=== PATIENT | female | born 1985 | race Caucasian/White ===

== ENCOUNTER 2016-12-31 16:52 | Emergency (ER) | payer MEDICAID ==
[~2016-12-31] VITALS: Ht 165.1 cm; Wt 76.2 kg
[~2016-12-31 16:52] MED LIST: BACTRIM DS 8001 TA1 PO; BUSPAR 10MG TAB10 MG PO; K-DUR 20MEQ TA20 MEQ PO; PROZAC 20MG CAP20 MG PO; TOPAMAX100 MG PO
--- OUTSIDE RECORDS SUMMARY | 2016-12-31 17:16 | External Medical Summary Rpt ---
Author Author [facility] Organization [facility] Address Unknown Phone Unavailable Care Team Providers Care Ict Help Desk Technician Name Role Phone MD DEEPALI PCP Unavailable Encounter [facility] [id number] Date(s): 11/26/14 - 11/28/15 [facility] [place] [address]- [phone] Discharge Disposition: OP Self Care or Home Attending Physician: ADOLFO PEDERSON MD Admitting Physician: ADOLFO PEDERSON MD Referring Physician: ADOLFO PEDERSON MD Reason for Visit SYNCOPE AND COLLAPSE Vital Signs No data available for this section Problem List No data available for this section Allergies, Adverse Reactions, Alerts No data available for this section Medications No data available for this section Results No data available for this section Immunizations No data available for this section Procedures No data available for this section Social History No data available for this section Assessment and Plan No data available for this section Hospital Discharge Instructions No data available for this section
--- OUTSIDE RECORDS SUMMARY | 2016-12-31 17:16 | External Medical Summary Rpt ---
Author Author [facility] Organization [facility] Address Unknown Phone Unavailable Care Team Providers Care Slot Editor Name Role Phone MD DEEPALI PCP Unavailable Encounter [facility] [id number] Date(s): 11/26/14 - 11/28/15 [facility] [place] [address]- Discharge Disposition: OP Self Care or Home [...]
--- OUTSIDE RECORDS SUMMARY | 2016-12-31 17:18 | External Medical Summary Rpt | CCD ---
Author Author , JOE Organization JOE Address Unknown Phone [email or web address] Care Team Providers Care Cardroom Attendant Name Role Phone [facility] Unavailable Unavailable DEPARTMENT, [facility]PART[facility] Unavailable Unavailable HOSPITAL, [facility], Unavailable Unavailable [facility], Unavailable Unavailable [facility] Unavailable Unavailable [facility], [facility], Unavailable Unavailable [facility] Unavailable [facility]available HOSPITA, [facility] Unavailable Unavailable HOSPITAL, [facility] Unavailable Unavailable HOSPITA, [facility]available Unavailable GROUP PS, [facility] Unavailable Unavailable [facility], [facility] Un[facility], [facility] Un[facility] Un[facility], [facility] Unavailable Unavailable ASSOCIATES, [facility] SUNIL MELGAR, Unavailable Unavailable PAWAN FAN OWEN, Unavailable Unavailable [facility]WAN Hernandes [facility] Un[facility] FRIDA FUNG MD Unavailable Unavailable CONSULTING SERVFRIDA MD CONSULTING SERV FRIDA FUNG MD Unavailable Unavailable CONSULTING SRFRIDA Villareal MD CONSULTING SRV [facility], Unavailable Unavailable PLLC, [facility] Unavailable Unavailable LAB, [facility]OLOGY & CYT[facility]Y LAB [facility], Unavailable Unavailable [facility] Unavailable Unavailable EMERGENCY PHYS, [facility] Unavailable Unavailable [facility]GENCY PHYSI, [facility], Unavailable Unavailable [facility] # Unavailable Unavailable [id number], 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) Z98.51 TUBAL 10-23-2016 LIGATION STATUS N390 URINARY 10-18-2016 [facility] TRACT N EMERGENCY INFECTION PHYS SITE NOT SPECIFIED R509 FEVER 10-18-2016 [facility] UNSPECIFIED N EMERGENCY PHYS F80104 PERSONAL 10-18-2016 [facility] HISTORY OF COMMUNTIY NICOTINE HOSPITA DEPENDENCE Z885 ALLERGY 10-18-2016 [facility] STATUS TO COMMUNTIY NARCOTIC HOSPITA AGENT STATUS Z9079 ACQUIRED 10-18-2016 [facility] ABSENCE OF COMMUNTIY OTHER HOSPITA GENITAL ORGANS Z9851 TUBAL 10-18-2016 [facility] LIGATION COMMUNTIY STATUS HOSPITA N8311 CORPUS 10-10-2016 [facility] OF RIGHT OVARY R83612 UNSPECIFIED 10-10-2016 [facility] LEFT GROUP PS SIDE O0010 TUBAL 10-10-2016 [facility] WITHOUT INTRAUTERIN E O0090 UNSPEC 10-10-2016 [facility] W/O INTRAUTERIN E PREG Z886 ALLERGY 10-10-2016 [facility] STATUS TO COMMUNTIY ANALGESIC HOSPITA AGENT STATUS O21.9 VOMITING OF 10-08-2016 , UNSPECIFIED O23.41 UNSPECIFIED 10-08-2016 INFECTION OF URINARY TRACT IN , FIRST TRIMESTER O26.891 OTHER 10-08-2016 SPECIFIED RELATED CONDITIONS, FIRST TRIMESTER R10.30 LOWER 10-08-2016 ABDOMINAL PAIN, UNSPECIFIED R11.2 NAUSEA WITH 10-08-2016 VOMITING, UNSPECIFIED Z32.01 ENCOUNTER 10-08-2016 FOR TEST, RESULT POSITIVE Z3A.00 WEEKS OF 10-08-2016 [facility]ST[facility] OF NOT SPECIFIED O219 VOMITING OF 10-04-2016 [facility] COMMUNTIY UNSPECIFIED HOSPITA O2341 UNS INF 10-04-2016 [facility] URINARY N EMERGENCY TRACT PHYS FIRST TRIMESTER J29745 OTHER SPEC 10-04-2016 [facility] COMMUNTIY RELATED HOSPITA COND 1ST TRIMESTER O9989 OTH DZ & 10-04-2016 [facility] [place] COND COMP [facility] PREG CHILDBIRTH PUERPERIUM Z3201 ENCOUNTER 10-04-2016 [facility] FOR COMMUNTIY HOSPITA TEST RESULT POSITIVE Z3A00 WEEKS OF 10-04-2016 [facility] GESTATION N EMERGENCY OF PHYS NOT SPECIFIED H16668 SWIMMERS 05-10-2016 [facility] EAR LEFT CLINIC EAR H6692 OTITIS 05-10-2016 [facility] UNSPECIFIED LEFT EAR R05 COUGH 05-10-2016 [facility] [place] [facility] R062 WHEEZING 05-10-2016 [facility] R0689 OTHER 05-10-2016 [facility] [place] ABNORMALITI RADIOLOGY ES OF BREATHING R0989 OT SPEC SX 05-10-2016 [facility] & SIGNS CLINIC INVLV THE CIRC & RESP SYS C59638 PAIN IN 04-19-2016 [facility] [place] LEFT WRIST RADIOLOGY M38806W STRAIN OT 04-19-2016 [facility] SPEC M&T N EMERGENCY WRIST HAND PHYS LEVL LT HAND INIT J86NSXV UNSPECIFIED 04-19-2016 [facility] FALL N EMERGENCY INITIAL PHYS ENCOUNTER Z0100 ENCOUNTER 08-04-2015 [facility] EXAM EYES & GRE VISION W/O ABNORMAL FIND E876 HYPOKALEMIA 02-08-2015 FRIDA FUNG MD CONSULTING SERV I959 HYPOTENSION 02-08-2015 FRIDA FUNG MD UNSPECIFIED CONSULTING SERV I10 ESSENTIAL 01-05-2015 [facility] G4710 HYPERSOMNIA 01-04-2015 FRIDA FUNG MD UNSPECIFIED CONSULTING SRV G478 OTHER SLEEP 12-24-2014 [facility] R0683 SNORING 12-24-2014 [facility] R5383 OTHER 12-24-2014 [place] [place] R569 UNSPECIFIED 12-24-2014 [facility] CONVUL[facility]IONS HOSPITAL [id number] CONTUSION 11-28-2014 [facility] OF LEFT N EMERGENCY WRIST PHYS INITIAL ENCOUNTER U200SWH FALL ON 11-28-2014 [facility] FROM OT N EMERGENCY STAIRS PHYS STEPS INITIAL ENCOUNTER 7851 PALPITATION 11-23-2014 [facility] Galvan MD CONSULTING SRV 7802 SYNCOPE AND 11-12-2014 FRIDA FUNG COLLAPSE [place]ULTING SRV 88020 SHORTNESS 11-12-2014 FRIDA FUNG OF BREATH MD CONSULTING SRV 40923 PRECORDIAL 11-12-2014 FRIDA FUNG PAIN CONSULTING SRV 20844 OTHER 11-02-2014 [facility] 94026 MEMORY LOSS 11-02-2014 [facility] 97070 UNSPEC 09-22-2014 [facility], WITHOUT PLLC MENTION INTRACT EPILEPSY 5990 URINARY 09-22-2014 [facility] TRACT [facility], INFECTION PLLC SITE NOT SPECIFIED 7820 DISTURBANCE 09-22-2014 [place] [facility] 72310 NONSPECIFIC 03-10-2014 [facility] ELECTROENCE PHALOGRAM 05176 ASTHMA, 02-21-2014 [facility] UNSPECIFIED N EMERGENCY , PHYS UNSPECIFIED STATUS 61321 WHEEZING 02-21-2014 [facility] N EMERGENCY PHYS 7862 COUGH 02-21-2014 [facility] N EMERGENCY PHYS 6259 UNSPEC 11-14-2013 [facility] SYMPTOM N EMERGENCY ASSOC PHYSI W/FEMALE GENITAL ORGANS 6268 OTH D/O 11-14-2013 [facility] MENSTRUATIO N EMERGENCY N&OTH ABN PHYSI BLEED FE GNT TRACT 51345 NAUSEA WITH 11-14-2013 [facility] [place] VOM[facility]ING RADIOLOG[facility] 81953 ABDOMINAL 11-14-2013 [facility] [place] PAIN RIGHT RADIOLOGY LOWER QUADRANT 99680 ALTERED 10-02-2013 [facility] V252 STERILIZATI 11-05-2011 [facility] SERV F[facility]AT[facility] V242 ROUTINE 11-01-2011 [facility] FOLLOW-UP FOUNDAT[facility] V7283 OTHER 11-01-2011 [facility] PRE-OPERATI HOSPITA VE EXAMINATION 06810 FIRST-DEGRE 09-04-2011 [facility] E PERINEAL [facility] LACERATION HOSPITA WITH DELIVERY V270 OUTCOME OF 09-04-2011 [facility] DELIVERY [facility] S[facility]LE HOSPITA LIVEBORN V221 SUPERVISION 09-03-2011 [facility] OF OTHER SERV NORMAL FOUNDATIO V2349 SUPERVISION 09-03-2011 [facility] W/OTH POOR F[facility] OBSTETRIC HX V2389 SUPERVISION 08-21-2011 [facility] OF OTHER SERV HIGH-RISK FOUNDATIO 66370 THREATENED 08-07-2011 [facility] PREMATURE [facility] LABOR HOSPITA ANTEPARTUM V2341 SUPERVISION 07-04-2011 [facility] W/HISTORY FOUNDATIO PRE-TERM LABOR V2881 ENCOUNTER 04-25-2011 [facility] ANATOMIC [facility] SURVEY V222 03-07-2011 [facility] [place] INCIDENTAL V720 EXAMINATION 02-22-2011 [facility] OF EYES GRE AND VISION 3670 HYPERMETROP 03-25-2010 [facility] [place] GRE 2701 PHENYLKETON 02-21-2010 [facility] 93893 OTHER 02-11-2010 [facility] THREATENED [facility], HOSP ANTEPARTUM V8901 SPCT PROB 02-08-2010 [facility] W/AMNIOTIC [facility] CAVITY & HOSP MEMBRANE NOT FOUND 88907 DECR 01-24-2010 [place] [facility] MGMT [facility] ANTPRTM COND/COMP 16125 OTH CURRENT 01-22-2010 [facility] CONDS [facility] CLASSIFIABL HOSP E ELSW ANTPRTM 44380 ABDOMINAL 01-22-2010 [facility], [facility] UNSPECIFIED HOSP SITE 07129 ABDOMINAL 12-07-2009 [facility] OTHER [facility] SPECIFIED HOSP SITE V220 SUPERVISION 11-29-2009 [place] OF NORMAL [facility]ER FIRST ASSOC[facility]ATES E8499 UNSPECIFIED 11-15-[address] [facility] OCCURRENCE HOSP E8859 FALL FROM 11-15-2009 [place] OTHER [facility] SLIPPING ASSOCIATES TRIPPING OR STUMBLING 73785 INFECTIONS 11-09-2009 [place] OF [facility] GENITOURINA ASSOCIATES RY TRACT ANTEPARTUM 61327 SPOTTING 10-04-2009 [place] COMP [facility] ANTEPARTUM COND/COMP 12975 MILD 09-21-2009 [place] HYPEREMESIS [facility] ANTEPARTUM 83145 OTHER 09-21-2009 [place] SPECIFED [facility] COMPLICATI HOSPITAL N ANTEPARTUM 7919 OTHER 09-21-2009 [facility] EXAMINATION OF URINE 11471 CERVICAL 09-06-2009 [place] SHORTENING [facility] ANTEPARTUM ASSOCIATES CONDITION OR COMP V283 ENCOUNTER 09-06-2009 [facility] ROUTINE [facility] SCREEN ASSOCIATES MALFORMATIO N ULTRASONIC V745 SCREENING 06-22-2009 PATHOLOGY & EXAMINATION CYTOLOGY FOR LAB VENEREAL DISEASE 22730 ABDOMINAL 06-16-2009 [facility] PAIN, LEFT [facility] UPPER HOSPITAL QUADRANT 2662 OTHER 06-10-2009 [facility] B-COMPLEX HEALTH DEFICIENCIE DEPARTMENT S V7242 06-10-2009 [facility] EXAMINATION HEALTH OR TEST DEPARTMENT POSITIVE RESULT Medications Na ND Rx Da Fi Fi Am Da Di Ph RX Ph St me C No te ll ll ou ys ag ar # ys at rm s nt no ma ic us Or Da si cy ia de te s n re d ON 57 08 09 12 4 00 KR Ac DA 23 -2 -2 .0 00 OG ti NS 70 4- 2- 00 06 ER ve ET 07 20 20 04 RO 63 17 17 85 PH N 0 27 AR HC MA L CY 8 MG L- 70 TA 9 BL ET HY 00 08 09 [address] 40 -2 -2 .0 00 OG ti OC 60 4- 2- 00 02 ER ve OD 12 20 20 31 ON 30 17 17 25 PH -A 1 11 AR CE MA TA CY ND NO L- PH 70 EN 9 5- 32 5 UPTON 65 08 09 28 14 00 KR Ac LF 86 -2 -2 .0 00 OG ti AM 20 4- 2- 00 06 ER ve ET 42 20 20 04 HO 00 17 17 85 PH XA 5 28 AR ZO MA LE CY -T MP L- 70 DS 9 TA BL ET HY 00 08 09 30 [address] 40 -1 -0 .0 00 OG ti OC 60 6- 8- 00 02 ER ve OD 12 20 20 31 ON 30 17 17 22 PH -A 1 77 AR CE MA TA CY ND NO L- PH 70 EN 9 5- 32 5 IB 55 08 09 40 10 00 KR Ac UP 11 -1 -0 .0 00 OG ti RO 10 6- 8- 00 06 ER ve FE 68 20 20 04 N 30 17 17 63 PH 60 5 97 AR 0 MA MG CY TA L- BL 70 ET 9 LA 51 04 05 46 30 00 CA Ac MO 67 -2 -1 .0 00 RL ti TR 24 6- 9- 00 00 IS ve IG 13 20 20 77 LE IN 00 17 [address] 25 UG S MG TA BL ET AR 65 04 05 30 30 00 CA Ac IP 16 -2 -1 .0 00 RL ti IP 20 6- 9- 00 00 IS ve RA 89 20 20 77 LE ZO 70 17 17 [address] 5 UG S MG TA BL ET NE 24 03 04 10 10 00 SO Ac OM 20 -1 -1 .0 00 PE ti YC 80 6- 4- 00 00 RS ve IN 63 20 20 55 -P 11 17 17 90 FA OL 0 02 ND YM LY YX IN DR -H UG C EA R SO LN AM 66 03 04 20 10 00 SO Ac OX 68 -1 -1 .0 00 PE ti -C 51 7- 4- 00 00 RS ve LA 00 20 20 55 V 10 17 17 90 FA 87 0 46 ND 5- LY [address] MG UG TA BL ET RA 53 02 02 2 45 22 WA 70 PA Ac NI 74 -0 -0 .0 L- 64 RR ti TI 60 1- 1- 00 MA 71 OT ve DI 25 20 20 RT 6 T NE 36 11 11 II 0 PH 15 AR OL 0 MA SO MG CY N # TA BL 10 ET 04 93 SP 00 02 02 11 28 28 WA 70 PA Ac RI 55 -0 -0 .0 L- 64 RR ti NT 59 1- 1- 00 MA 71 OT ve EC 01 20 20 RT 7 T 65 11 11 II 28 8 PH AR OL DA MA SO Y CY N TA # BL ET 10 04 93 OX 00 12 12 0 25 4 WA 22 PA Ac YC 40 -2 -2 .0 L- 18 RR ti OD 60 1- 1- 00 MA 63 OT ve ON 51 20 20 RT 6 T E- 20 10 10 II AC 1 PH ET AR OL AM MA SO IN CY N OP # HE N 10 5- 04 32 93 5 IB 68 12 12 0 25 6 WA 70 PA Ac UP 64 -2 -2 .0 L- 59 RR ti RO 50 1- 1- 00 MA 75 OT ve FE 22 20 20 RT 5 T N 15 10 10 II 60 9 PH 0 AR OL MG MA SO CY N TA # BL ET 10 04 93 TR 13 08 12 4 30 27 WA 70 PA Ac IN 81 -1 -0 .0 L- 43 RR ti AT 10 0- 5- 00 MA 09 OT ve AL 00 20 20 RT 9 T 71 10 10 II RX 0 PH 1 AR OL MA SO TA CY N BL # ET 10 04 93 TR 13 08 10 4 30 30 WA 70 PA Ac IN 81 -1 -1 .0 L- 43 RR ti AT 10 0- 8- 00 MA 09 OT ve AL 00 20 20 RT 9 T 71 10 10 II RX 0 PH 1 AR OL MA SO TA CY N BL # ET 10 04 93 CE 68 09 09 0 30 7 WA 70 Ac PH 18 -3 -3 .0 L- 49 LL ti AL 00 0- 0- 00 MA 34 AF ve EX 12 20 20 RT 2 LO IN 20 10 10 R 1 PH OS 50 AR IA 0 MA S MG CY M # CA PS 10 UL 04 E 93 TR 13 08 09 4 30 30 WA 70 PA Ac IN 81 -1 -0 .0 L- 43 RR ti AT 10 0- 6- 00 MA 09 OT ve AL 00 20 20 RT 9 T 71 10 10 II RX 0 PH 1 AR OL MA SO TA CY N BL # ET 10 04 93 TR 13 08 08 4 30 30 WA 70 PA Ac IN 81 -1 -1 .0 L- 43 RR ti AT 10 0- 0- 00 MA 09 OT ve AL 00 20 20 RT 9 T 71 10 10 II RX 0 PH 1 AR OL MA SO TA CY N BL # ET 10 04 93 NI 00 07 07 0 20 10 WA 70 KI Ac TR 37 -2 -2 .0 L- 41 NZ ti OF 83 8- 8- 00 MA 71 EL ve UR 42 20 20 RT 9 AN 20 10 10 CA TO 1 PH RL IN AR J MA MO CY NO # -M CR 10 04 10 93 0 MG ON 00 07 07 0 12 30 WA 70 KI Ac DA 78 -2 -2 .0 L- 41 NZ ti NS 15 8 8 00 MA 72 EL ve ET 23 20 20 RT 0 RO 86 10 10 CA N 4 PH RL OD AR J T MA 4 CY MG # TA 10 BL 04 ET 93 AZ 00 07 07 0 6. 3 WA 70 PA Ac IT 09 -0 -0 00 L- 39 RR ti HR 37 7- 7- 0 MA 44 OT ve OM 14 20 20 RT 5 T YC 65 10 10 II IN 6 PH AR OL 25 MA SO 0 CY N MG # TA 10 BL 04 ET 93 Procedures Procedure DOS Code Location Performer Comment MEDICAL 734 [facility] INDUCTION 2 N N OF LABOR [facility] [place] [address] [facility] OTHER 2 N N CURRENT [facility]ST[facility]IC HOSPITA HOSPITA LACERATIO N OTHER 7309 [facility] ARTIFICIA 2 N N L RUPTURE [facility] Encounters Encounter Start End Date Code Location Performer Type Date [facility] [place] [address] 7 N OUTPATIEN [facility] [place] [address] 7 N [facility] [place] [facility] - 5 5 [facility] - 5 5 [facility] - 5 5 [facility] 5 5 [facility] - 4 4 [facility] - [address] [facility] - 2 2 N INPATIENT [facility] - 0 0 [facility] 0 [facility] - 0 0 [facility] - 0 0 [facility] 0 [facility] 0 0 [facility] - [address] [facility] - 0 0 N [facility]
--- OUTSIDE RECORDS SUMMARY | 2016-12-31 17:18 | External Medical Summary Rpt | CCD ---
Author Author , JOE Organization JOE Address Unknown Phone [email or web address] Care Team Providers Care Purchasing Administrative Assistant Name Role Phone [facility] Unavailable Unavailable DEPARTMENT, [facility] Unavailable Unavailable HOSPITAL, [facility], Unavailable Unavailable [facility], Unavailable Unavailable [facility] Unavailable Unavailable [facility]OC, [facility], [facility]available Unavailable [facility] Unavailable Unavailable HOSPITA, [facility] Unavailable Unavailable HOSPITAL, [facility] Unavailable Unavailable HOSPITA, [facility] Unavailable Unavailable GROUP PS, [facility] Unavailable Unavailable IM[facility]ING [facility], [facility] Un[facility] Un[facility], [facility] Un[facility] Un[facility], [facility] [place] [employer] Unavailable Unavailable ASSOCIATES, [place] [facility] SUNIL MELGAR, Unavailable Unavailable PAWAN [...] LAB [facility], Unavailable Unavailable [facility] Unavailable Unavailable EMERGENCY PHYS, [facility] Unavailable Unavailable EMERGENCY PHYSI, [facility], Unavailable Unavailable [facility] # [facility]available Unavailable [id number], [facility] # [id number] Purpose Continuity of Care Document - 06-10-2009 [...] FEVER 10-18-2016 [facility] UNSPECIFIED N EMERGENCY PHYS [id number] PERSONAL 10-18-2016 [facility] HISTORY OF COMMUNTIY NICOTINE HOSPITA DEPENDENCE Z885 ALLERGY 10-18-2016 [facility] STATUS TO COMMUNTIY NARCOTIC HOSPITA AGENT STATUS Z9079 ACQUIRED 10-18-2016 [facility] ABSENCE OF COMMUNTIY OTHER HOSPITA GENITAL ORGANS Z9851 TUBAL 10-18-2016 [facility] LIGATION COMMUNTIY STATUS HOSPITA N8311 CORPUS 10-10-2016 [facility] OF RIGHT OVARY B71101 UNSPECIFIED 10-10-2016 [facility] CYST LEFT GROUP PS SIDE O0010 TUBAL 10-10-2016 [facility] WITHOUT INTRAUTERIN E O0090 UNSPEC 10-10-2016 [facility] W/O INTRAUTERIN E PREG Z886 ALLERGY 10-10-2016 [facility] STATUS TO COMMUNTIY ANALGESIC HOSPITA AGENT STATUS O21.9 VOMITING OF 10-08-2016 , UNSPECIFIED O23.41 UNSPECIFIED 10-08-2016 INFECTION OF URINARY TRACT IN , FIRST TRIMESTER O26.891 OTHER 10-08-2016 SPECIFIED RELATED CONDITIONS, FIRST TRIMESTER R10.30 LOWER 10-08-2016 ABDOMINAL PAIN, UNSPECIFIED R11.2 NAUSEA WITH 10-08-2016 VOMITING, UNSPECIFIED Z32.01 ENCOUNTER 10-08-2016 FOR TEST, RESULT POSITIVE Z3A.00 WEEKS OF 10-08-2016 GEST[facility] OF NOT SPECIFIED O219 VOMITING OF 10-04-2016 [facility] COMMUNTIY UNSPECIFIED HOSPITA O2341 UNS INF 10-04-2016 [facility] URINARY N EMERGENCY TRACT PHYS FIRST TRIMESTER D48424 OTHER SPEC 10-04-2016 [facility] COMMUNTIY RELATED HOSPITA COND 1ST TRIMESTER O9989 OTH DZ & 10-04-2016 [facility] [place] [facility] COMP RADIOLOGY PREG CHILDBIRTH PUERPERIUM Z3201 ENCOUNTER 10-04-2016 [facility] FOR COMMUNTIY HOSPITA TEST RESULT POSITIVE Z3A00 WEEKS OF 10-04-2016 [facility] GESTATION N EMERGENCY OF PHYS NOT SPECIFIED M10853 SWIMMERS 05-10-2016 [facility] EAR LEFT CLINIC EAR H6692 OTITIS 05-10-2016 [facility] UNSPECIFIED LEFT EAR R05 COUGH 05-10-2016 [facility] [place] [facility] R062 WHEEZING 05-10-2016 [facility] R0689 OTHER 05-10-2016 [facility] [place] ABNORMALITI RADIOLOGY ES OF BREATHING R0989 OT SPEC SX 05-10-2016 [facility] & SIGNS CLINIC INVLV THE CIRC & RESP SYS U09610 PAIN IN 04-19-2016 [facility] [place] LEFT WRIST RADIOLOGY U58317H STRAIN OT 04-19-2016 [facility] SPEC M&T N EMERGENCY WRIST HAND PHYS LEVL LT HAND INIT A61HBGD UNSPECIFIED 04-19-2016 [facility] FALL N EMERGENCY INITIAL PHYS ENCOUNTER Z0100 ENCOUNTER 08-04-2015 [facility] EXAM EYES & GRE VISION W/O ABNORMAL FIND E876 HYPOKALEMIA 02-08-2015 FRIDA FUNG MD CONSULTING SERV I959 HYPOTENSION 02-08-2015 FRIDA FUNG MD UNSPECIFIED CONSULTING SERV I10 ESSENTIAL 01-05-2015 [facility] N G4710 HYPERSOMNIA 01-04-2015 FRIDA FUNG MD UNSPECIFIED CONSULTING SRV G478 OTHER SLEEP 12-24-2014 [facility] R0683 SNORING 12-24-2014 [facility] R5383 OTHER 12-24-2014 [facility] FATIGUE [facility] R569 UNSPECIFIED 12-24-2014 [facility] CONVULSIONS HOSPITAL [id number] CONTUSION 11-28-2014 [facility] OF LEFT N EMERGENCY WRIST PHYS INITIAL ENCOUNTER D383YYL FALL ON 11-28-2014 [facility] FROM OT N EMERGENCY STAIRS PHYS STEPS INITIAL ENCOUNTER 7851 PALPITATION 11-23-2014 FRIDA Galvan MD CONSULTING SRV 7802 SYNCOPE AND 11-12-2014 FRIDA UFNG COLLAPSE MD CONSULTING SRV 09163 SHORTNESS 11-12-2014 FRIDA FUNG OF BREATH MD CONSULTING SRV 18750 PRECORDIAL 11-12-2014 FRIDA FUNG PAIN CONSULTING SRV 91911 OTHER 11-02-2014 [facility] 18197 MEMORY LOSS 11-02-2014 [facility] 14657 UNSPEC 09-22-2014 [facility] EPILEPSY PHYSICIANS, WITHOUT PLLC MENTION INTRACT EPILEPSY 5990 URINARY 09-22-2014 [facility] TRACT PHYSICIANS, INFECTION PLLC SITE NOT SPECIFIED 7820 DISTURBANCE 09-22-2014 [facility] MEDICAL SENSATION IMAGING ASS 08933 NONSPECIFIC 03-10-2014 [facility] ELECTROENCE PHALOGRAM 08945 ASTHMA, 02-21-2014 [facility] UNSPECIFIED N EMERGENCY , PHYS UNSPECIFIED STATUS 23945 WHEEZING 02-21-2014 [facility] N EMERGENCY PHYS 7862 COUGH 02-21-2014 [facility] N EMERGENCY PHYS 6259 UNSPEC 11-14-2013 [facility] SYMPTOM N EMERGENCY ASSOC PHYSI W/FEMALE GENITAL ORGANS 6268 OTH D/O 11-14-2013 [facility] MENSTRUATIO N EMERGENCY N&OTH ABN PHYSI BLEED FE GNT TRACT 41239 NAUSEA WITH 11-14-2013 [facility] [place] [facility] RADIOLOG[facility] 22362 ABDOMINAL 11-14-2013 [facility] [place] PAIN RIGHT RADIOLOGY LOWER QUADRANT 41390 ALTERED 10-02-2013 [facility] V252 STERILIZATI 11-05-2011 [facility] V242 ROUTINE 11-01-2011 [facility] FOLLOW-UP [facility] V7283 OTHER 11-01-2011 [facility] PRE-OPERATI HOSPITA VE EXAMINATION 51707 FIRST-DEGRE 09-04-2011 [facility] E PERINEAL [facility] LACERATION HOSPITA WITH DELIVERY V270 OUTCOME OF 09-04-2011 [facility] DELIVERY COMMUNITY SINGLE HOSPITA LIVEBORN V221 SUPERVISION 09-03-2011 [facility] OF OTHER SERV NORMAL FOUNDATIO V2349 SUPERVISION 09-03-2011 [facility] W/OTH POOR FOUNDATIO OBSTETRIC HX V2389 SUPERVISION 08-21-2011 [facility] OF OTHER SERV HIGH-RISK FOUNDATIO 55965 THREATENED 08-07-2011 [facility] PREMATURE [facility] LABOR HOSPITA ANTEPARTUM V2341 SUPERVISION 07-04-2011 [facility] W/HISTORY FOUNDATIO PRE-TERM LABOR V2881 ENCOUNTER 04-25-2011 [facility] ANATOMIC F[facility]ATIO SURVEY V222 03-07-2011 [facility] INCIDENTAL V720 EXAMINATION 02-22-2011 [facility] OF EYES GRE AND VISION 3670 HYPERMETROP 03-25-2010 [facility] IA GRE 2701 PHENYLKETON 02-21-2010 [facility] 70367 OTHER 02-11-2010 [facility] THREATENED [facility], HOSP ANTEPARTUM V8901 SPCT PROB 02-08-2010 [facility] W/AMNIOTIC [facility]P MEMBRANE NOT FOUND 41240 DECR 01-24-2010 [place] MOVMNTS BOARD MIXER TENDER MGMT MOTH ASSOCIATES ANTPRTM COND/COMP 72211 OTH CURRENT 01-22-2010 [facility] MAT CONDS [facility] CLASSIFIABL HOSP E ELSW ANTPRTM 81455 ABDOMINAL 01-22-2010 [facility] PAIN, [facility] UNSPECIFIED HOSP SITE 58945 ABDOMINAL 12-07-2009 [facility] PAIN OTHER [facility] SPECIFIED HOSP SITE V220 SUPERVISION 11-29-2009 [place] OF NORMAL BOARD MIXER TENDER FIRST ASSOCIATES E8499 UNSPECIFIED 11-15-[address] [facility] OCCURRENCE HOSP E8859 FALL FROM 11-15-2009 [place] OTHER BOARD MIXER TENDER SLIPPING ASSOCIATES TRIPPING OR STUMBLING 98304 INFECTIONS 11-09-2009 [place] OF BOARD MIXER TENDER GENITOURINA ASSOCIATES RY TRACT ANTEPARTUM 26119 SPOTTING 10-04-2009 [place] COMP BOARD MIXER TENDER ASSOCIATES ANTEPARTUM COND/COMP 70708 MILD 09-21-2009 [facility] HYPEREMESIS [facility] ANTEPARTUM 78388 OTHER 09-21-2009 [facility] SPECIFED [facility] COMPLICATI HOSPITAL N ANTEPARTUM 7919 OTHER 09-21-2009 [facility] EXAMINATION OF URINE 92953 CERVICAL 09-06-2009 [place] 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 ASSOCIATES CONDITION OR COMP V283 ENCOUNTER 09-06-2009 [place] ROUTINE BOARD MIXER TENDER SCREEN ASSOCIATES MALFORMATIO N ULTRASONIC V745 SCREENING 06-22-2009 PATHOLOGY & EXAMINATION CYTOLOGY FOR LAB VENEREAL DISEASE 68316 ABDOMINAL 06-16-2009 [facility] PAIN, LEFT [facility] UPPER HOSPITAL QUADRANT 2662 OTHER 06-10-2009 [facility] B-COMPLEX HEALTH DEFICIENCIE DEPARTMENT S V7242 06-10-2009 [facility] EXAMINATION HEALTH OR TEST DEPARTMENT POSITIVE [...] 1 11 AR CE MA TA CY MD NO L- PH 70 EN 9 5- [...] 1 77 AR CE MA TA CY MD NO L- PH 70 EN 9 5- [...] 17 17 90 FA OL 0 02 MD YM LY YX IN DR -H UG C EA R SO LN AM 66 03 04 20 10 00 SO Ac OX 68 -1 -1 .0 00 PE ti -C 51 7- 4- 00 00 RS ve LA 00 20 20 55 V 10 17 17 90 FA 87 0 46 MD 5- LY [address] MG UG [...] DOS Code Location Performer Comment MEDICAL 734 [facility] INDUCTION 2 N N OF LABOR [facility] H[facility]PITA HOSPITA REPAIR OF 7569 [facility] OTHER 2 N N CURRENT [facility] OBSTETRIC HOSPITA HOSPITA LACERATIO N OTHER 7309 [facility] ARTIFICIA 2 N N L RUPTURE [facility] Encounters Encounter Start End Date Code Location Performer Type Date [facility] [place] [address] 7 N OUTPATIEN [facility] [place] [address] 7 N OUTPATIEN [facility] [place] [facility] [place] [facility] [address] [facility] [place] - [address] [facility] [place] - [address] [facility] - 5 5 [facility] - 5 5 [facility] [address] [facility] [address] [facility] - 2 2 N [facility]PAT[facility] - 2 2 [facility] - 2 2 [facility] [place] [facility] [address] [facility] - 0 0 [facility] - 0 0 [facility] - 0 0 [facility] - 0 0 [place] - 0 0 [facility] - 0 0 [place] - 0 0 [place] - 0 0 [facility] [place] - [address] [facility] - [address] [facility] - 0 0 N [facility]
--- OUTSIDE RECORDS SUMMARY | 2016-12-31 17:20 | External Medical Summary Rpt | CCD ---
Demographics Preferred Language Ukrainian Marital Status Unknown Episcopalian Affiliation Unknown Race Unknown Ethnic Group Unknown Author Author , JOE DIAZ Address Unknown Phone Immunization No patient found.
--- OUTSIDE RECORDS SUMMARY | 2016-12-31 17:20 | External Medical Summary Rpt | CCD ---
Demographics Preferred Language Maltese Marital Status Unknown Nondenominational Affiliation Unknown Race Unknown Ethnic Group Unknown Author Author , JOE DIAZ Address Unknown Phone Immunization No patient found.
--- OUTSIDE RECORDS SUMMARY | 2016-12-31 17:20 | External Medical Summary Rpt | CCD ---
Author Author , JOE DIAZ Address Unknown Phone [email or web address] Care Team Providers Care Supervisor Type Bar And Segment Name Role Phone [facility] Unavailable Unavailable DEPARTMENT, [facility] Unavailable Unavailable HOSPITAL, [facility], [facility]available Unavailable [facility], Unavailable [facility]available [facility] Unavailable Unavailable ASSOC, [facility], Unavailable Unavailable [facility] Unavailable [facility]available HOSPITA, [facility] Unavailable [facility]available [facility], [facility] Unavailable [facility]available HOSPITA, [facility] Unavailable Unavailable GROUP PS, [facility] Unavailable Unavailable IM[facility]ING [facility], [facility] Unavailable Un[facility], [facility] Unavailable Unavailable [facility], [facility] [place] S[employer] Unavailable Unavailable ASSOCIATES, [place] [facility] [facility] SUNIL MELGAR, Unavailable Unavailable PAWAN FAN OWEN, Unavailable Unavailable PAWAN Hernandes [facility] Un[facility] FRIDA FUNG MD Unavailable Unavailable CONSULTING SERVFRIDA MD CONSULTING SERV FRIDA FUNG MD Unavailable Unavailable CONSULTING SRFRIDA Villareal MD CONSULTING SRV [facility], Unavailable [facility] Unavailable Unavailable LAB, [facility]OLOGY & CYTOLOGY LAB [facility], Unavailable Unavailable [facility] Unavailable Unavailable [facility], [facility] Unavailable Unavailable EMERGENCY PH[facility], [facility], Unavailable Unavailable [facility] # Unavailable Unavailable [id number], [facility] # [id number] Purpose Continuity of Care Document - 06-10-2009 through 2016 Problems Code Diagnosis DOS Provider Status N390 URINARY 10-18-2016 [facility] TRACT N EMERGENCY INFECTION PHYS SITE NOT SPECIFIED R509 FEVER 10-18-2016 [facility] UNSPECIFIED N EMERGENCY PHYS R69587 PERSONAL 10-18-2016 [place] HISTORY OF COMMUNTIY NICOTINE HOSPITA DEPENDENCE Z885 ALLERGY 10-18-2016 [place] STATUS TO COMMUNTIY NARCOTIC HOSPITA AGENT STATUS Z9079 ACQUIRED 10-18-2016 [place] ABSENCE OF COMMUNTIY OTHER HOSPITA GENITAL ORGANS Z9851 TUBAL 10-18-2016 [place] LIGATION COMMUNTIY STATUS HOSPITA N8311 CORPUS 10-10-2016 [facility] OF RIGHT OVARY W32994 UNSPECIFIED 10-10-2016 [place] [facility] CYST LEFT GROUP PS SIDE O0010 TUBAL 10-10-2016 [facility] WITHOUT INTRAUTERIN E O0090 UNSPEC 10-10-2016 [facility] W/O INTRAUTERIN E PREG Z886 ALLERGY 10-10-2016 [place] STATUS TO COMMUNTIY ANALGESIC HOSPITA AGENT STATUS O219 VOMITING OF 10-04-2016 [place] COMMUNTIY UNSPECIFIED HOSPITA O2341 UNS INF 10-04-2016 [facility] URINARY N EMERGENCY TRACT PHYS FIRST TRIMESTER P36909 OTHER SPEC 10-04-2016 [place] COMMUNTIY RELATED HOSPITA COND 1ST TRIMESTER O9989 OTH DZ & 10-04-2016 [facility] [place] [facility] COMP RADIOLOGY PREG CHILDBIRTH PUERPERIUM Z3201 ENCOUNTER 10-04-2016 [place] FOR COMMUNTIY HOSPITA TEST RESULT POSITIVE Z3A00 WEEKS OF 10-04-2016 [facility] GESTATION N EMERGENCY OF PHYS NOT SPECIFIED W43074 SWIMMERS 05-10-2016 [facility] E[facility] LEFT CLINIC EAR H6692 OTITIS 05-10-2016 [facility] UNSPECIFIED LEFT EAR R05 COUGH 05-10-2016 [facility] [place] [facility] R062 WHEEZING 05-10-2016 [facility] R0689 OTHER 05-10-2016 [facility] [place] ABNORMALITI RADIOLOGY ES OF BREATHING R0989 OTH SPEC SX 05-10-2016 [facility] & SIGNS CLINIC INVLV THE CIRC & RESP SYS T55276 PAIN IN 04-19-2016 [facility] [place] LEFT WRIST RADIOLOGY M72885X STRAIN OTH 04-19-2016 [facility] SPEC M&T N EMERGENCY WRIST HAND PHYS LEVL LT HAND INIT A76CGPU UNSPECIFIED 04-19-2016 [facility] FALL N EMERGENCY INITIAL PHYS ENCOUNTER Z0100 ENCOUNTER 08-04-2015 [facility] EXAM EYES & GRE VISION W/O ABNORMAL FIND E876 HYPOKALEMIA 02-08-2015 FRIDA FUNG MD CONSULTING SERV I959 HYPOTENSION 02-08-2015 FRIDA FUNG MD UNSPECIFIED CONSULTING SERV I10 ESSENTIAL 01-05-2015 [facility] G4710 HYPERSOMNIA 01-04-2015 FRIDA FUNG MD UNSPECIFIED CONSULTING SRV G478 OTHER SLEEP 12-24-2014 [place] DISORDERS [facility] R0683 SNORING 12-24-2014 [facility] R5383 OTHER 12-24-2014 [facility] FATIGUE [facility] R569 UNSPECIFIED 12-24-2014 [facility] CONVULSIONS [facility] V65925J CONTUSION 11-28-2014 [facility] OF LEFT N EMERGENCY WRIST PHYS INITIAL ENCOUNTER Y813QPZ FALL ON 11-28-2014 [facility] FROM OTH N EMERGENCY STAIRS PHYS STEPS INITIAL ENCOUNTER 7851 PALPITATION 11-23-2014 FRIDA FUNG S CONSULTING SRV 7802 SYNCOPE AND 11-12-2014 FRIDA FUNG COLLAPSE CONSULTING SRV 04577 SHORTNESS 11-12-2014 FRDIA FUNG OF BREATH CONSULTING SRV 73691 PRECORDIAL 11-12-2014 FRIDA FUNG PAIN CONSULTING SRV 12866 OTHER 11-02-2014 [facility] 03188 MEMORY LOSS 11-02-2014 [facility] 65085 UNSPEC 09-22-2014 [facility] E[facility]LE[facility]ICIANS, WITHOUT PLLC MENTION INTRACT EPILEPSY 5990 URINARY 09-22-2014 [facility] TRACT PHYSIC[facility], INFECTION PLLC SITE NOT SPECIFIED 7820 DISTURBANCE 09-22-2014 [place] OF SKIN MEDICAL SENSATION IMAGING ASS 75457 NONSPECIFIC 03-10-2014 [facility] ELECTROENCE PHALOGRAM 90940 ASTHMA, 02-21-2014 [facility] UNSPECIFIED N EMERGENCY , PHYS UNSPECIFIED STATUS 67740 WHEEZING 02-21-2014 [facility] N EMERGENCY PHYS 7862 COUGH 02-21-2014 [facility] N EMERGENCY PHYS 6259 UNSPEC 11-14-2013 [facility] SYMPTOM N EMERGENCY ASSOC PHYSI W/FEMALE GENITAL ORGANS 6268 OTH D/O 11-14-2013 [facility] MENSTRUATIO N EMERGENCY N&OTH ABN PHYSI BLEED FE GNT TRACT 40774 NAUSEA WITH 11-14-2013 [facility] [place] [facility] RAD[facility] 01641 ABDOMINAL 11-14-2013 [facility] [place] PAIN RIGHT RADIOLOGY LOWER QUADRANT 59599 ALTERED 10-02-2013 [facility] V252 STERILIZATI 11-05-2011 [facility] V242 ROUTINE 11-01-2011 [facility] FOLLOW-UP FOUNDATIO V7283 OTHER 11-01-2011 [facility] PRE-OPERATI HOSPITA VE EXAMINATION 42778 FIRST-DEGRE 09-04-2011 [place] E PERINEAL [facility] LACERATION HOSPITA WITH DELIVERY V270 OUTCOME OF 09-04-2011 [place] DELIVERY COMMUNITY SINGLE HOSPITA LIVEBORN V221 SUPERVISION 09-03-2011 [facility] OF OTHER SERV NORMAL FOUNDATIO V2349 SUPERVISION 09-03-2011 [facility] W/OTH POOR FOUNDATIO OBSTETRIC HX V2389 SUPERVISION 08-21-2011 [facility] OF OTHER SERV HIGH-RISK FOUNDATIO 36700 THREATENED 08-07-2011 [place] PREMATURE [facility] LABOR HOSPITA ANTEPARTUM V2341 SUPERVISION 07-04-2011 [facility] W/HISTORY FOUNDATIO PRE-TERM LABOR V2881 ENCOUNTER 04-25-2011 [facility] FOR SERV ANATOMIC FOUNDATIO SURVEY V222 03-07-2011 [facility]AGNOSTICS INCIDENTAL V720 EXAMINATION 02-22-2011 [facility] OF EYES GRE AND VISION 3670 HYPERMETROP 03-25-2010 [facility] IA GRE 2701 PHENYLKETON 02-21-2010 [facility] 83785 OTHER 02-11-2010 [facility] THREATENED [facility], HOSP ANTEPARTUM V8901 SPCT PROB 02-08-2010 [facility] W/AMNIOTIC [facility] CAVITY & HOSP MEMBRANE NOT FOUND 04998 DECR 01-24-2010 [facility] MOVMNTS SCREW SUPERVISOR MGMT MOTH ASSOCIATES ANTPRTM COND/COMP 83357 OTH CURRENT 01-22-2010 [facility] MAT CONDS [facility] CLASSIFIABL HOSP E ELSW ANTPRTM 37867 ABDOMINAL 01-22-2010 [facility] PAIN, [facility] UNSPECIFIED HOSP SITE 42932 ABDOMINAL 12-07-2009 [facility] PAIN OTHER [facility] SPECIFIED HOSP SITE V220 SUPERVISION 11-29-2009 [facility] OF NORMAL SCREW SUPERVISOR FIRST ASSOC[facility]ATES E8499 UNSPECIFIED 11-15-[address] OF [facility] OCCURRENCE HOSP E8859 FALL FROM 11-15-2009 [facility] OTHER SCREW SUPERVISOR SLIPPING ASSOCIATES TRIPPING OR STUMBLING 04895 INFECTIONS 11-09-2009 [place] OF SCREW SUPERVISOR GENITOURINA ASSOCIATES RY TRACT ANTEPARTUM 97587 SPOTTING 10-04-2009 [facility] COMP SCREW SUPERVISOR ASSOCIATES ANTEPARTUM COND/COMP 98131 MILD 09-21-2009 [facility] HYPEREMESIS [facility] ANTEPARTUM 96450 OTHER 09-21-2009 [facility]PL[facility]PITAL N ANTEPARTUM 7919 OTHER 09-21-2009 [facility] NONSPECIFIC [facility] EXAMINATION OF URINE 16159 CERVICAL 09-06-2009 [place] SHORTENING SCREW SUPERVISOR ANTEPARTUM ASSOCIATES CONDITION OR COMP V283 ENCOUNTER 09-06-2009 [place] ROUTINE SCREW SUPERVISOR SCREEN ASSOCIATES MALFORMATIO N ULTRASONIC V745 SCREENING 06-22-2009 PATHOLOGY & EXAMINATION CYTOLOGY FOR LAB VENEREAL DISEASE 84080 ABDOMINAL 06-16-2009 [place] PAIN, LEFT [facility] HOSPITAL QUADRANT 2662 OTHER 06-10-2009 [facility] B-COMPLEX HEALTH DEFICIENCIE DEPARTMENT S V7242 06-10-2009 [facility] EXAMINATION HEALTH OR TEST DEPARTMENT POSITIVE [...] 1 11 AR CE MA TA CY VA NO L- PH 70 EN 9 5- [...] 1 77 AR CE MA TA CY VA NO L- PH 70 EN 9 5- [...] 17 17 90 FA OL 0 02 VA YM LY YX IN DR -H UG C EA R SO LN AM 66 03 04 20 10 00 SO Ac OX 68 -1 -1 .0 00 PE ti -C 51 7- 4- 00 00 RS ve LA 00 20 20 55 V 10 17 17 90 FA 87 0 46 VA 5- LY [address] MG UG [...] .0 L- 41 NZ ti NS 15 8- 8- 00 MA 72 EL ve ET 23 [...] Procedures Procedure DOS Code Location Performer Comment OTHER 7309 [facility] ARTIFICIA 2 N N L RU[facility]URE [facility]34 [facility] INDUCTION 2 N N OF [facility] [place] [facility]69 [facility] OTHER 2 N N CURRENT [facility] N Encounters Encounter Start End Date Code Location Performer Type [facility] [place] [address] [address] [facility] [place] [address] 7 N [facility] [place] [address] 7 [address] [facility] [place] [address] 7 [facility] [place] [address] 5 [facility] [place] [address] 5 [facility] SEAL[facility] - 5 5 [facility] - 5 5 [facility] - 4 4 [facility] - 2 N [facility] - 2 N INPATIENT [facility] [place] [address] 2 N [facility] [place] [address] 2 N [facility] [place] - 0 0 [facility] - 0 0 [facility] - 0 0 [facility] - [address] [facility] - 0 0 [facility] - 0 0 [facility] - 0 0 [facility] - 0 [facility] [address] [facility] [place] - 0 0 [facility] - 0 0 N [facility] - 0 0 N [facility]
--- OUTSIDE RECORDS SUMMARY | 2016-12-31 17:20 | External Medical Summary Rpt ---
Author Author [employer]E Carranza, [employer] Organization [employer] Address Unknown Phone Unavailable
--- OUTSIDE RECORDS SUMMARY | 2016-12-31 17:20 | External Medical Summary Rpt | CCD ---
Author Author , JOE DIAZ Address Unknown Phone [email or web address] Care Team Providers Care Clinical Fellow Name Role Phone [facility] Unavailable Unavailable DEPARTMENT, [facility] Unavailable Unavailable HOSPITAL, [facility], Unavailable Unavailable [facility], Unavailable Unavailable [facility] Unavailable Unavailable [facility], [facility], Unavailable Unavailable [facility] [place] [facility] Unavailable [facility]available HOSPITA, [facility] Unavailable [facility]available [facility], [facility] Unavailable Unavailable HOSPITA, [facility] Un[facility] Unavailable [facility] PS, [facility] Unavailable [facility]available [facility], [facility] Un[facility], [facility] Un[facility] Un[facility], [facility] Unavailable Unavailable ASSOCIATES, [facility] SUNIL MELGAR, Unavailable Unavailable PAWAN FAN OWEN, Unavailable Unavailable [facility] Unavailable Unavailable LABS, [...] Unavailable Unavailable EMER[facility]Y [facility], [facility], Unavailable Unavailable [facility] # Unavailable Unavailable [id number], [facility] # [id number] Purpose Continuity of Care Document - 06-10-2009 through 2016 Problems Code Diagnosis DOS Provider Status N390 URINARY 10-18-2016 [facility] TRACT N EMERGENCY INFECTION PHYS SITE NOT SPECIFIED R509 FEVER 10-18-2016 [facility] UNSPECIFIED N EMERGENCY PHYS F03515 PERSONAL 10-18-2016 [facility] HISTORY OF COMMUNTIY NICOTINE HOSPITA DEPENDENCE Z885 ALLERGY 10-18-2016 [facility] STATUS TO COMMUNTIY NARCOTIC HOSPITA AGENT STATUS Z9079 ACQUIRED 10-18-2016 [facility] ABSENCE OF COMMUNTIY OTHER HOSPITA GENITAL ORGANS Z9851 TUBAL 10-18-2016 [facility] LIGATION COMMUNTIY STATUS HOSPITA N8311 CORPUS 10-10-2016 [facility] OF RIGHT OVARY A06616 UNSPECIFIED 10-10-2016 [facility] LEFT GROUP PS SIDE O0010 TUBAL 10-10-2016 [facility] WITHOUT INTRAUTERIN E O0090 UNSPEC 10-10-2016 [facility] W/O INTRAUTERIN E PREG Z886 ALLERGY 10-10-2016 [facility] STATUS TO COMMUNTIY ANALGESIC HOSPITA AGENT STATUS O219 VOMITING OF 10-04-2016 [facility] COMMUNTIY UNSPECIFIED HOSPITA O2341 UNS INF 10-04-2016 [facility] URINARY N EMERGENCY TRACT PHYS FIRST TRIMESTER Q53156 OTHER SPEC 10-04-2016 [facility] COMMUNTIY RELATED HOSPITA COND 1ST TRIMESTER O9989 OTH DZ & 10-04-2016 [facility] [place] [facility] PREG CHILDBIRTH PUERPERIUM Z3201 ENCOUNTER 10-04-2016 [facility] FOR COMMUNTIY HOSPITA TEST RESULT POSITIVE Z3A00 WEEKS OF 10-04-2016 [facility] GESTATION N EMERGENCY OF PHYS NOT SPECIFIED F60168 SWIMMERS 05-10-2016 [facility] E[facility] LEFT CLINIC EAR H6692 OTITIS 05-10-2016 [facility] UNSPECIFIED LEFT EAR R05 COUGH 05-10-2016 [facility] R062 WHEEZING 05-10-2016 [facility] R0689 OTHER 05-10-2016 [facility] [place] ABNORMALITI RADIOLOGY ES OF BREATHING R0989 OTH SPEC SX 05-10-2016 [facility] & SIGNS CLINIC INVLV THE CIRC & RESP SYS T38224 PAIN IN 04-19-2016 [facility] [place] LEFT WRIST RADIOLOGY U84608P STRAIN OTH 04-19-2016 [facility] SPEC M&T N EMERGENCY WRIST HAND PHYS LEVL LT HAND INIT P80GQHS UNSPECIFIED 04-19-2016 [facility] FALL N EMERGENCY INITIAL PHYS ENCOUNTER Z0100 ENCOUNTER 08-04-2015 [facility] EXAM EYES & GRE VISION W/O ABNORMAL FIND E876 HYPOKALEMIA 02-08-2015 FR[facility] FUNG MD CONSULTING SERV I959 HYPOTENSION 02-08-2015 [facility] FUNG MD UNSPECIFIED CONSULTING SERV I10 ESSENTIAL 01-05-2015 [facility] G4710 HYPERSOMNIA 01-04-2015 FRIDA FUNG MD UNSPECIFIED CONSULTING SRV G478 OTHER SLEEP 12-24-2014 [place] DISORDERS [facility] R0683 SNORING 12-24-2014 [facility] R5383 OTHER 12-24-2014 [place] FATIGUE [facility] R569 UNSPECIFIED 12-24-2014 [facility] CONVULSIONS [facility] R14592A CONTUSION 11-28-2014 [facility] OF LEFT N EMERGENCY WRIST PHYS INITIAL ENCOUNTER D368HAH FALL ON 11-28-2014 [facility] FROM OTH N EMERGENCY STAIRS PHYS STEPS INITIAL ENCOUNTER 7851 PALPITATION 11-23-2014 [facility] FUNG S CONSULTING SRV 7802 SYNCOPE AND 11-12-2014 [facility] [place]ING [place]V 24172 SHORTNESS 11-12-2014 [facility] FUNG OF BREATH CONSULTING SRV 89243 PRECORDIAL 11-12-2014 [facility] FUNG PAIN CONSULTING SRV 66462 OTHER 11-02-2014 [facility] 62785 MEMORY LOSS 11-02-2014 [facility] 21368 UNSPEC 09-22-2014 [facility]LE[facility]IANS, WITHOUT PLLC MENTION INTRACT EPILEPSY 5990 URINARY 09-22-2014 [facility] TRACT [facility]YS[facility], INFECTION PLLC SITE NOT SPECIFIED 7820 DISTURBANCE 09-22-2014 [place] [facility] 26589 NONSPECIFIC 03-10-2014 [facility] ELECTROENCE PHALOGRAM 43374 ASTHMA, 02-21-2014 [facility] UNSPECIFIED N EMERGENCY , PHYS UNSPECIFIED STATUS 27397 WHEEZING 02-21-2014 [facility] N EMERGENCY PHYS 7862 COUGH 02-21-2014 [facility] N EMERGENCY PHYS 6259 UNSPEC 11-14-2013 [facility] SYMPTOM N EMERGENCY ASSOC PHYSI W/FEMALE GENITAL ORGANS 6268 OTH D/O 11-14-2013 [facility] MENSTRUATIO N EMERGENCY N&OTH ABN PHYSI BLEED FE GNT TRACT 55366 NAUSEA WITH 11-14-2013 [facility] [place] [facility] 52476 ABDOMINAL 11-14-2013 [facility] [place] PAIN RIGHT RADI[facility] LOWER QUADRANT 05568 ALTERED 10-02-2013 [facility] V252 STERILIZATI 11-05-2011 [facility] V242 ROUTINE 11-01-2011 [facility]UP [facility] V7283 OTHER 11-01-2011 [facility] PRE-OPERATI [facility]OS[facility] VE EXAMINATION 63239 FIRST-DEGRE 09-04-2011 [facility] E PERINEAL [facility] WITH DELIVERY V270 OUTCOME OF 09-04-2011 [facility] DELIVERY [facility]ITY SINGLE HOSPITA LIVEBORN V221 SUPERVISION 09-03-2011 [facility] OF OTHER SERV NORMAL [facility] V2349 SUPERVISION 09-03-2011 [facility] W/OTH POOR [facility] OBSTETRIC HX V2389 SUPERVISION 08-21-2011 [facility] OF OTHER SERV HIGH-RISK FOUNDATIO 88803 THREATENED 08-07-2011 [facility] PREMATURE [facility] LABOR HOSPITA ANTEPARTUM V2341 SUPERVISION 07-04-2011 [facility] W/HISTORY [facility] PRE-TERM LABOR V2881 ENCOUNTER 04-25-2011 [facility] FOR SERV ANATOMIC [facility] SURVEY V222 03-07-2011 [place] DIAGNOSTICS INCIDENTAL V720 EXAMINATION 02-22-2011 [facility] OF EYES GRE AND VISION 3670 HYPERMETROP 03-25-2010 [facility] IA GRE 2701 PHENYLKETON 02-21-2010 [facility] 50257 OTHER 02-11-2010 [facility] THREATENED [facility], [facility]OSP ANTEPARTUM V8901 SPCT PROB 02-08-2010 [facility] W/AMNIOTIC [facility] MEMBRANE NOT FOUND 30497 DECR 01-24-2010 [facility] MOVMNTS SUPERVISOR PAPER MACHINE MGMT [facility] ANTPRTM COND/COMP 92079 OTH CURRENT 01-22-2010 [facility] MAT CONDS [facility] CLASSIFIABL HOSP E ELSW ANTPRTM 54181 ABDOMINAL 01-22-2010 [facility] PAIN, [facility] UNSPECIFIED HOSP SITE 90489 ABDOMINAL 12-07-2009 [facility] PAIN OTHER [facility] SPECIFIED HOSP SITE V220 SUPERVISION 11-29-2009 ROB[facility] OF NORMAL SUPERVISOR PAPER MACHINE FIRST [facility] E8499 UNSPECIFIED 11-15-[address] [facility] OCCURRENCE HOSP E8859 FALL FROM 11-15-2009 [facility] OTHER SUPERVISOR PAPER MACHINE SLIPPING [facility] TRIPPING OR STUMBLING 20656 INFECTIONS 11-09-2009 [facility] OF SUPERVISOR PAPER MACHINE GENITOURINA [facility] RY TRACT ANTEPARTUM 79713 SPOTTING 10-04-2009 [facility] COMP SUPERVISOR PAPER MACHINE [facility]OC[facility] ANTEPARTUM COND/COMP 09506 MILD 09-21-2009 [facility] HYPEREMESIS [facility] ANTEPARTUM 88767 OTHER 09-21-2009 [facility] N ANTEPARTUM 7919 OTHER 09-21-2009 [facility] NONSPECIFIC [facility] EXAMINATION OF URINE 95218 CERVICAL 09-06-2009 [facility] SHORTENING SUPERVISOR PAPER MACHINE ANTEPARTUM ASSOCIATES CONDITION OR COMP V283 ENCOUNTER 09-06-2009 [facility] ROUTINE SUPERVISOR PAPER MACHINE SCREEN ASSOC[facility]ATES MALFORMATIO N ULTRASONIC V745 SCREENING 06-22-2009 PATHOLOGY & EXAMINATION CYTOLOGY FOR LAB VENEREAL DISEASE 86093 ABDOMINAL 06-16-2009 [facility] PAIN, LEFT [facility] HOSPITAL QUADRANT 2662 OTHER 06-10-2009 [facility] CO B-COMPLEX HEALTH DEFICIENCIE DEPARTMENT S V7242 06-10-2009 [facility] EXAMINATION HEALTH OR TEST DEPARTMENT POSITIVE RESULT [...] 1 11 AR CE MA TA CY AR NO L- PH 70 EN 9 5- [...] 1 77 AR CE MA TA CY AR NO L- PH 70 EN 9 5- [...] 17 17 90 FA OL 0 02 AR YM LY YX IN DR -H UG C EA R SO LN AM 66 03 04 20 10 00 SO Ac OX 68 -1 -1 .0 00 PE ti -C 51 7- 4- 00 00 RS ve LA 00 20 20 55 V 10 17 17 90 FA 87 0 46 AR 5- LY [address] MG UG [...] DOS Code Location Performer Comment OTHER [address] [facility] ARTIFICIA 2 N N L RUPTURE [facility] HOSPITA [facility] MEDICAL 7[address] [facility] INDUCTION 2 N N OF LABOR [facility] REPAIR OF 75[address] [facility] OTHER 2 N N CURRENT [facility]IC [facility] N Encounters Encounter Start End Date Code Location Performer Type [facility] [place] [address] [address] [facility] [place] [address] [address] [facility] [place] [address] [address] [facility] [place] [address] [address] [facility] [place] [address] [address] [facility] [place] [address] 5 [facility] - 5 5 [facility] - 5 5 [facility] [place] - 4 4 [facility] - 2 N [facility] - 2 N INPATIENT [facility] [place] [address] [address] N [facility] [place] [address] 2 N [facility] [place] - 0 0 [facility] - 0 0 [facility] - 0 0 [facility] - 0 0 [facility] - 0 0 [facility] - 0 0 [facility] - 0 0 [facility] - 0 0 [facility] - 0 0 [facility] [place] - 0 0 [facility] - 0 0 N [facility] - 0 0 N [facility]
--- NOTE | 2016-12-31 17:48 | Urgent Treatment Center Report ---
History of Present Issue Date/Time Seen by Provider 12/31/16 1747 Visit Reason Pt arrived:Wheelchair Presenting Problem:PT STATES SLIPPED AND FELL IN THE BATHTUB AND INJURED RIGHT ANKLE Location if Accident:Home Onset of symptoms date/time:12/31/1608/12/1599 or onset unknown for: Have you (or family members/close friends) recently traveled outside the [place]? N If Yes, where/when: Have you had exposure to infectious disease within the past month? TB? Other? Specify: c/o right foot, ankle and leg pain after falling in shower today. thinks tub was slippery from soap causing the fall. landed with foot under buttock, dorsal aspect on tub. Hasn't taken or tried anything prior to arrival other than crutches. Denies N/T. Pt came in with crutches. Source patient Exam Limitations no limitations ALLERGIES Coded Allergies: MDX - No Known Allergies - Nka (NO KNOWN ALLERGIES - NKA) (Mild, 12/21/14) Home Medications Active Scripts POTASSIUM CHL (Potassium Chloride) 20 MEQ PO DAILY #5 TAB Prov: 09/22/14 Reported Medications Topiramate (Topamax) 100 MG PO BID Fluoxetine Hcl (Prozac 20MG Capsule(Generic)) 20 MG PO DAILY Buspirone Hcl (Buspar 10MG) 10 MG PO DAILY History Medical History General CAD? No Angina: No [place]: No Hypertension? No Hyperlipidemia? No CHF? No DVT? No PE? No COPD? No Asthma? No Anemia? No GERD? No Gastric ulcers? No GI Bleed? No Hernia? No Thyroid Problems? No Hypothyroidism? No CVA? No Seizures? Yes Diabetes? No UTI? No Stones? No BPH? No GB Disease: No Nephritic Syndrome? No Asplenia? No Hepatitis? No Sickle Cell Disease? No Arthritis? No Migraines? No Cataracts? No Glaucoma? No MRSA? No HIV? No TB? No Anxiety? Yes Depression? Yes Cancer? No More? Yes Additional hx: MAJOR DEPRESSIVE DISORDER WITH PSYCHOTIC FEATURES Immunization HX DT/Tetanus 1-4 Years Ago Surgical Hx Previous Surgery?N VISITOR SERVICES COORDINATOR Hx LMP 3 Weeks Ago Social History Smoking Hx Smoker: Never Smoker Tobacco: No Alcohol Alcohol: No Review of Systems All Other Systems Reviewed and Negative (as appropriate for CC) Musculoskeletal see HPI, joint swelling Skin denies change in color Psychiatric/Neurological see HPI Physical Exam Vital Signs Vital Signs Date Time Temp Pulse Resp B/P Pulse O2 O2 Flow FiO2 Ox Delivery Rate 12/31 1700 98.8 91 18 110/64 98 General Appearance no apparent distress, seated in WC Respiratory Status No: respiratory distress. Cardiovascular no peripheral edema Peripheral Pulses Pulses normal Yes (DP/PT) Back gait abnormality (limp favoring right) Extremities limited range of motion (right ankle), swelling (right lateral malleous), TTP across dorsal side of all metatarsals, lateral malleous and distal lower leg Strength 5 Lower Ext (L), 5 Lower Ext (R) Neurologic alert, oriented x 3 Skin intact, normal color, warm/dry Medical Decision Making LABS/Meds/Orders Pt receiving controlled substance in ED? No Results/Orders Orders Procedure Date/time Status STABILIZE JOINT 12/31 180 Active XRAY/CT/US XRAY/CT/US XRAY ankle (right), foot (right), right lower leg XR interpretation by reviewed by me (w/ Dr. Uribe, NILDA MONAHAN), discussed w/ radiologist (read report prior to discharge) Xray Results no acute finding final result Departure Departure Time of Disposition 1755 Disposition DC Home or Self Care(routine) Clinical Impression Primary Impression: Right foot sprain Qualifiers: Encounter type: initial encounter Qualified Code: S93.601A - Unspecified sprain of right foot, initial encounter Secondary Impressions: Right ankle sprain Qualifiers: Encounter type: initial encounter Involved ligament of ankle: unspecified ligament Qualified Code: S93.401A - Sprain of unspecified ligament of right ankle, initial encounter Condition STABLE Referrals CLARISSA ELISE DPM Since no primary care, FU Dr. Elise if no noticeable improvement over the next 3-5 days. Return for new or worsening symptoms. Patient Instructions DI for Ankle Sprain, DI for Foot Sprain, How to Apply an Rayray Wrap, How To Perform RICE (Rest, Ice, Compress, Elevate), How to Use Crutches Additional Instructions * weight bearing as tolerated but if painful, stay off foot and be sure to follow up * Rest * ice 15-20 mins 3-4 times a day * Rayray wrap for support and swelling unless in shower. Be sure not too tight but not too loose either * Elevate as discussed as much as possible to help reduce swelling and therefore , pain * Ibuprofen every 6 hours as needed for pain and inflammation. If you need something more, you can take tylenol every 4 hours as needed as long as your primary care provider has told you it is ok to take both. Discharge Counseling Counseled pt/family regarding diagnosis, test results, medications/RX, home care, follow up needs at [phone]
--- NOTE | 2016-12-31 17:49 | RADIOLOGY REPORT PS360 ---
LOWER LEG-RT HISTORY: Posttraumatic pain FELL IN SHOWER ORDERING PHYSICIAN: MARIANA LOPES APRN PATIENT AGE: 31 years COMPARISON: None FINDINGS: No fracture or dislocation. No bony or joint abnormality. IMPRESSION: Negative right tib-fib
--- NOTE | 2016-12-31 17:50 | RADIOLOGY REPORT PS360 ---
ANKLE-RT-3 VIEWS HISTORY: Posttraumatic pain FELL IN SHOWER ORDERING PHYSICIAN: MARIANA LOPES APRN PATIENT AGE: 31 years COMPARISON: None FINDINGS: No fracture or dislocation. No lytic or blastic change. There is normal mineralization.. The joint spaces are well-preserved. No significant degenerative/arthritic changes. No erosive changes evident. IMPRESSION: Negative, no acute finding
[2016-12-31 18:02] VITALS: BP 110/64
== END 2016-12-31 18:05 | disposition home or self-care (01) ==
LOC: UTC 16:52
PROC: 2W3QX1Z Immobilization of Right Lower Leg using Splint (ICD-10-PCS; principal; 2016-12-31)
DX: S93.601A Unspecified sprain of right foot, initial encounter (principal); S93.401A Sprain of unspecified ligament of right ankle, initial encounter; W01.0XXA Fall on same level from slipping, tripping and stumbling without subsequent striking against object, initial encounter; Y92.019 Unspecified place in single-family (private) house as the place of occurrence of the external cause